=== PATIENT | male | born 1960 | race Caucasian/White ===

== ENCOUNTER 2018-07-06 19:30 | Emergency (ER) | payer BC ==
[~2018-07-06] VITALS: Ht 195.6 cm; Wt 111.1 kg
[2018-07-06 19:35] VITALS: BP 147/96
[2018-07-06] MEDS ORDERED: LIDOcaine 1% 30ml preserv. free vial IJ STA (20:13)
== END 2018-07-06 21:17 | disposition home or self-care (01) ==
LOC: ER 19:32
DX: S60.552A Superficial foreign body of left hand, initial encounter (principal); Z98.890 Other specified postprocedural states; W22.8XXA Striking against or struck by other objects, initial encounter; Y93.89 Activity, other specified; Y92.69 Other specified industrial and construction area as the place of occurrence of the external cause; Y99.9 Unspecified external cause status
CPT/HCPCS: 99284

== ENCOUNTER 2022-10-14 13:47 | Inpatient (IN) | payer BC, MEDICARE ==
[~2022-10-14] VITALS: Ht 195.6 cm; Wt 93.2 kg
[2022-10-14 14:35] LABS: BASOPHILS # (AUTO) 0.1 X10'3 (0-0.2); BASOPHILS % (AUTO) 0.7 % (0-1); EOSINOPHILS # (AUTO) 0.2 X10'3 (0-0.9); EOSINOPHILS % (AUTO) 2.1 % (0-6); HEMATOCRIT 45.5 % (42.0-52.0); HEMOGLOBIN 15.2 g/dl (14.0-17.9); LYMPHOCYTES # (AUTO) 1.5 X10'3 (1.1-4.8); LYMPHOCYTES % (AUTO) 13.5 % (21-51); MEAN CORPUSCULAR HEMOGLOBIN 30.7 PG (27.0-31.0); MEAN CORPUSCULAR HGB CONC 33.5 g/dL (33.0-36.5); MEAN CORPUSCULAR VOLUME 91.8 FL (78-98); MEAN PLATELET VOLUME 8.1 FL (7.4-10.4); MONOCYTES # (AUTO) 0.9 X10'3 (0-0.9); MONOCYTES % (AUTO) 7.8 % (2-12); NEUTROPHILS # (AUTO) 8.5 X10'3 (1.8-7.7); NEUTROPHILS % (AUTO) 75.9 % (42-75); PLATELET COUNT 394 X10'3 (140-440); RED BLOOD COUNT 4.96 X10'6 (4.70-6.10); RED CELL DISTRIBUTION WIDTH 13.9 % (11.5-14.5); WHITE BLOOD COUNT 11.2 X10'3 (4.5-11.0)
[2022-10-14 14:55] LABS: ALANINE AMINOTRANSFERASE 31 U/L (12-78); ALBUMIN 4.2 G/DL (3.4-5.0); ALBUMIN/GLOBULIN RATIO 1.1 (1.1-1.5); ALKALINE PHOSPHATASE 76 IU/L (46-116); ANION GAP 8 (8-16); ASPARTATE AMINO TRANSFERASE 26 U/L (10-37); BILIRUBIN,TOTAL 0.4 MG/DL (0.1-1.0); BLOOD UREA NITROGEN 13 MG/DL (7-18); CALCIUM 9.7 MG/DL (8.5-10.1); CHLORIDE 104 MMOL/L (99-107); CREATININE 0.62 MG/DL (0.60-1.10); ETHANOL < 10 MG/DL (<10); GLUCOSE 104 MG/DL (70-104); POTASSIUM 4.3 MMOL/L (3.5-5.1); SODIUM 141 MMOL/L (135-145); TOTAL CARBON DIOXIDE 28.9 MMOL/L (24-32); TOTAL PROTEIN 7.9 G/DL (6.4-8.2); eCRCL 158 ML/MIN; eGFR > 90 ML/MIN
[2022-10-14 15:31] LABS: URINE AMPHETAMINE SCREEN NEGATIVE (Neg); URINE BARBITUATE SCREEN NEGATIVE (Neg); URINE BENZODIAZEPINES SCREEN NEGATIVE (Neg); URINE CANNABINOID SCREEN NEGATIVE (Neg); URINE COCAINE SCREEN NEGATIVE (Neg); URINE METHADONE SCREEN NEGATIVE (Neg); URINE OPIATE SCREEN NEGATIVE (Neg); URINE PHENCYCLIDINE SCREEN NEGATIVE (Neg)
[2022-10-14 16:04] LABS: BILIRUBIN,URINE NEGATIVE (Neg); CLARITY,URINE CLEAR (Clear); COLOR,URINE YELLOW (Yellow); GLUCOSE, URINE NEGATIVE (Neg); KETONES,URINE TRACE mg/dl (Neg); LEUKOCYTE ESTERASE ,URINE NEGATIVE (Neg); NITRITES, URINE NEGATIVE (Neg); OCCULT BLOOD,URINE NEGATIVE (Neg); PH,URINE 5.5 (4.8-8.0); PROTEIN,URINE NEGATIVE (Neg); UROBILINOGEN,URINE 0.2 E.U/dL (0.2-1.0)
[2022-10-14 16:07] LABS: UA COLLECTION TYPE CLN CATCH MIDSTREAM
--- NOTE | 2022-10-14 16:42 | NUR ---
RN spoke to patient for quite a while. Patient tearful and states he wants to live. Patient states he is able to walk, able to speak, able to use his hands. Patient denies falling and states he is very careful. Patient states when he is close to the end he plans on breathing in nitrogen to kill himself. Patient states he wants some control at the end. But patient does not want to end his life now. RN also spoke to his on the phone and she did not know his plan and was very concerned as to why he would keep the nitrogen in his jeep. "That's a red flag!" RN asked the patient why he kept the nitrogen in his car. Patient stated it was the safest place so nobody would find it. RN again asked the patient if he wanted to end his life soon. Patient denied. RN spoke to patient and advised that in the end he will not be able to administer it to himself. He agreed.
--- NOTE | 2022-10-14 19:10 | NUR ---
PATIENT HAVING CONVERSATION WITH JENNY AT THIS TIME.
[2022-10-14] MEDS ORDERED: LATA2.5D14 EACHEYE (21:23)
[2022-10-14] MEDS ORDERED: SOD1POWD PO (21:23)
[2022-10-14] MEDS ORDERED: TRILOGY INH (21:23)
[2022-10-14] MEDS ORDERED: BUDE10.2 INH (21:23)
[2022-10-14] MEDS ORDERED: EDAR105O PO (21:23)
[2022-10-14] MEDS ORDERED: BRIM5DRO21 EACHEYE (21:23)
--- NOTE | 2022-10-14 21:49 | NUR ---
Gathered patient med list. Communicated with Carol. She is bringing his Trilogy machine for him to use [employer]. Cabrera RT will assist in set-up. Patient was upset about 5150 placement however getting all his medications and Trilogy machine gathered up gave him some peace of mind and allowed him to relax more. Patient changed into green scrubs and gathered his belongings including his cell phone and clothing.
--- NOTE | 2022-10-14 21:56 | NUR ---
Carol () cell phone [phone]
--- NOTE | 2022-10-14 21:57 | NUR ---
Madyson canada in [facility] - 10/14/22 at 2159 by MIGUELITO Carol ([place]) [phone] contact information.
--- NOTE | 2022-10-14 21:59 | NUR ---
Received patient's Trilogy machine and rest of home meds from . Called pharmacy to let them know about special meds coming. RT hooked patient up to his machine and is gathering his tubing to his machine that she forgot to bring. Patient appears to be comfortable and applied SPo2. Oxygen level 97%.
--- NOTE | 2022-10-14 22:37 | NUR ---
Nurse stephen took wallet, phone and keys and gave them to pt's .
--- NOTE | 2022-10-14 22:38 | NUR ---
records sent to [facility]
[2022-10-14 23:54] VITALS: PULSE 74; RESP 18; O2SAT 98
[2022-10-15] VITALS (9 sets, daily range): BP systolic 124–140; BP diastolic 79–95; PULSE 73–89; RESP 16–20; TEMP 97.7–97.8; O2SAT 97–98
[2022-10-15] MEDS ORDERED: [UNRECOGNIZED DRUG - REMARK] PO (00:59)
[2022-10-15] MEDS ORDERED: VIT B12 PO (00:59)
[2022-10-15] MEDS ORDERED: Vit D3 PO (00:59)
[2022-10-15] MEDS ORDERED: [UNRECOGNIZED DRUG - OTHER] PO (00:59)
[2022-10-15] MEDS ORDERED: [UNRECOGNIZED DRUG - OTHER] PO (00:59)
[2022-10-15] MEDS ORDERED: [UNRECOGNIZED DRUG - OTHER] PO (00:59)
[2022-10-15] MEDS ORDERED: [UNRECOGNIZED DRUG - OTHER] PO (00:59)
[2022-10-15] MEDS ORDERED: FISH1CAP15 PO (00:59)
[2022-10-15] MEDS ORDERED: [UNRECOGNIZED DRUG - OTHER] PO (00:59)
[2022-10-15] MEDS ORDERED: UBID50TA3 PO (00:59)
[2022-10-15] MEDS ORDERED: BUDE10.2 INH (00:59)
[2022-10-15] MEDS ORDERED: LION S MANE PO (00:59)
--- NOTE | 2022-10-15 02:02 | NUR ---
Patient sleeping well, appears to be comfortable. Will continue to monitor.
--- NOTE | 2022-10-15 07:05 | NUR ---
Nurse received report from [facility] nurse. Pt is awake at bedside reading a magazine. No acute distress noted.
[2022-10-15] MEDS: brimonidine 0.2% 5 ML ophthalmic drops EACHEYE SCH ×2 (08:00→20:31)
[2022-10-15] MEDS: [UNRECOGNIZED DRUG - OTHER] PO SCH (08:00)
[2022-10-15] MEDS ORDERED: non-formulary drug (Budesonide/Formoterol Fumarate (Symbicort 160-4.5 Mcg Inhaler) 2 PUFFS INH SCH (08:00)
[2022-10-15] MEDS: timolol 0.5% ophthalmic solution 5ml bottle EACHEYE SCH ×2 (08:00→20:00)
[2022-10-15] MEDS ORDERED: EPA PO SCH (08:00)
[2022-10-15] MEDS ORDERED: FISH OIL PO SCH (08:00)
[2022-10-15] MEDS ORDERED: DHA PO SCH (08:00)
[2022-10-15] MEDS ORDERED: albuterol 2.5 MG/3 ML nebule NEB SCH (09:00)
[2022-10-15] MEDS ORDERED: budesonide 0.5mg/2ml UD nebule IH SCH (09:00)
--- NOTE | 2022-10-15 09:00 | NUR ---
Pt is eating breakfast at bedside.
[2022-10-15] MEDS: UBIDECARENONE 100 MG PO SCH (09:21)
[2022-10-15] MEDS: SOD PHENYLBUTYRAT PO SCH (09:23)
[2022-10-15] MEDS: [UNRECOGNIZED DRUG - OTHER] PO SCH (09:23)
[2022-10-15] MEDS ORDERED: mag hydrox/Alum hydrox/simeth 30ml oral suspension PO PRN (09:50)
[2022-10-15] MEDS ORDERED: acetaminophen 325mg tablet PO PRN ×2 (09:50)
[2022-10-15] MEDS ORDERED: loperamide 2mg capsule PO PRN (09:50)
[2022-10-15] MEDS ORDERED: magnesium hydroxide 30ml (MOM) UD suspension PO PRN (09:50)
--- NOTE | 2022-10-15 10:00 | NUR ---
1:1 done at bedside, pt upset regarding his medications and the fact that some of his supplements were not continued. Pt requesting to speak with the MD stating, "this is cruel, they want me to decline." Nurse ensured pt. this was not the MD intentions but often supplements are not continued while in the ED. Pt was acceptable of this. Pt denies SI at this time. Pt has been trying to get ahold of his since 0800 but she is not answering phone calls. This nurse called his per pt request and spoke with his who said she would call her back but she has not. Pt. has now been accepted to [facility].
--- NOTE | 2022-10-15 11:34 | NUR ---
Admit note: Pt admitted to [place] for [facility] today on 5150 for DTS at 1010. Pt reports buying nitrogen , hiding nitrogen and equipment in his vehicle so his family would not find it, as a way to end his life in the future due to ALS dx. Family expressed concerns for his safety and not willing to safety plan. Pt seems to only have history of ALS. Addendum: 10/15/22 at 1820 by Maria Teresa Abreu RN Pt. denies any current S/I and scores as a low risk on the [place] Suicide Risk Assessment. This was endorsed to Robe Javier 15min safety checks were ordered. However, pt. is to be on line of sight when using his Trilogy CPAP in his room r/t safety risk. Pt. exhibits bilateral lower extremity weakness and uses bilateral ankle braces and a walker. A soft chopped diet was ordered r/t delayed and decreased swallowing ability.
[2022-10-15] MEDS: BUDESONIDE IH SCH ×2 (12:33→20:34)
[2022-10-15] MEDS: FORMOTEROL IH SCH ×2 (12:33→20:34)
--- NOTE | 2022-10-15 15:36 | NUR ---
Family friend, Roberto Carlos (ph# [phone]), called to state that she is an advocate for the family and that she will be the customer contact sales associate, not patient's , Sly. Patient did sign ABRAM for both Roberto Carlos and his . Roberto Carlos reported she will try to visit patient tomorrow. LEWIS Acosta
[2022-10-15] MEDS ORDERED: ibuprofen tablet 400 MG TABLET PO ONE (17:15)
[2022-10-15] MEDS: OMEGA-3/DHA/EPA/FISH OIL 1 EACH CAPSULE.DR PO SCH (20:32)
[2022-10-15] MEDS: latanoprost 0.005% 2.5ml ophthalmic drops EACHEYE SCH (20:32)
[2022-10-16] VITALS (8 sets, daily range): BP systolic 101–116; BP diastolic 68–74; PULSE 65–90; RESP 16–18; TEMP 97.4–97.8; O2SAT 95–99
--- NOTE | 2022-10-16 05:10 | NUR ---
NURSING PROGRESS NOTE: John Problem: Pt admitted to [place] for [facility] health today on 5150 for DTS at 1010. Pt reports buying nitrogen , hiding nitrogen and equipment in his vehicle so his family would not find it, as a way to end his life in the future due to ALS dx. Family expressed concerns for his safety and not willing to safety plan. Pt seems to only have history of ALS. Interventions : Maintained a safe and supportive environment, ensured contract for safety, provided clear and simple instructions, provided active listening and positive encouragement, encouraged pt. to perform ADLs, and maintained Q 15min safety checks. Response: Microbiology Professor received pt in dining room completing meal. He needed assistance to put tray away. He ambulates with ankle braces he is able to don/doff. His gait and speech are slow. Pt is alert and oriented x 4. Pt reports his mental health admission today is due to wanting to end his life by nitrogen inhalation. He recently received his ALS diagnosis in the last few years. His ALS diagnosis is not terminal at this time but debilitating. He reports every day is getting worse. He states his current advanced directive does not allow him to pursue physician assisted suicide and will be needing to revise upon his discharge. He has a and son. His family is aware of his diagnosis. He states his and son help him with his daily care such as folding clothes. Pt speech is mumbled and takes considerable effort to participate in conversation. Wet nonproductive cough noted. Pt does not want to be a burden to his family. Pt is upset that his Psychiatrist broke his trust in discovering his plan to kill himself through nitrogen inhalation. 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 He enjoyed rowing and riding dirt bikes. General muscle wasting noted. Pt ambulates in room without braces in a fair manner. Pt aware of room surroundings. Pt has Trilogy ventilator. Pt able to don/doff mask with ease. Pt compliant with all medications but refused Timolol eye drops. Pt is frustrated that he is not able to take his home vitamin/supplements. He stated the pharmacist disclosed to patient, they will not fill for him despite supplements being brought to pharmacy. Pt appearance well groomed. Pt thought content depressed. Pt insight poor. Pt judgement average to poor. Pt mood depressed. Pt reports poor sleep yesterday. Pt declined snack. Plan : Pt. requires interruption of current crisis, medication adjustments, and a safe and supportive environment. Pt currently is a high risk discharge.
[2022-10-16 07:36] LABS: CHOL/HDL RATIO 4.9 (0.00-4.99); CHOLESTEROL 240 MG/DL (0-200); HDL CHOLESTEROL 49 MG/DL (35-60); LDL CHOLESTEROL 152 MG/DL (50-100); TRIGLYCERIDES 107 MG/DL (20-135)
[2022-10-16 07:56] LABS: HEMOGLOBIN A1C 5.4 % (4.5-6.2)
[2022-10-16] MEDS: timolol 0.5% ophthalmic solution 5ml bottle EACHEYE SCH ×2 (08:00→08:58)
[2022-10-16] MEDS: brimonidine 0.2% 5 ML ophthalmic drops EACHEYE SCH ×2 (08:58→20:00)
[2022-10-16] MEDS: OMEGA-3/DHA/EPA/FISH OIL 1 EACH CAPSULE.DR PO SCH ×2 (08:59→21:25)
[2022-10-16] MEDS: [UNRECOGNIZED DRUG - OTHER] PO SCH (08:59)
[2022-10-16] MEDS: SOD PHENYLBUTYRAT PO SCH (08:59)
[2022-10-16] MEDS: UBIDECARENONE 100 MG PO SCH (08:59)
[2022-10-16] MEDS: [UNRECOGNIZED DRUG - OTHER] PO SCH (09:00)
[2022-10-16] MEDS: BUDESONIDE IH SCH ×2 (09:03→20:08)
[2022-10-16] MEDS: FORMOTEROL IH SCH ×2 (09:03→20:08)
[2022-10-16] MEDS ORDERED: [UNRECOGNIZED DRUG - OTHER] PO (10:37)
[2022-10-16] MEDS ORDERED: [UNRECOGNIZED DRUG - REMARK] PO (10:38)
[2022-10-16] MEDS ORDERED: [UNRECOGNIZED DRUG - OTHER] PO (10:38)
[2022-10-16] MEDS ORDERED: LION S MANE PO (10:39)
[2022-10-16] MEDS ORDERED: Vit D3 PO (10:39)
[2022-10-16] MEDS ORDERED: [UNRECOGNIZED DRUG - OTHER] PO (10:39)
[2022-10-16] MEDS ORDERED: VIT B12 PO (10:39)
[2022-10-16] MEDS ORDERED: [UNRECOGNIZED DRUG - OTHER] PO (10:39)
--- NOTE | 2022-10-16 11:24 | NUR ---
Point of Contact for Patient: Blair Marin
--- NOTE | 2022-10-16 14:53 | NUR ---
Psychosocial Assessment John is a 62 y/o male who was placed on 5150 for danger to self. He had [facility] and admitted that he had purchased nitrogen and hid it in his Jeep to have on hand for when he decides it is time to take his life in the future due to ALS complications. John was kept on 5150 and placed at [facility]. John repored he began having issues with his speech May 2020 and was diagnosed with ALS August 2021. 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 He reported his neurologist, Dr Rice, typically places a person with an ALS diagnosis on an antidepressant. John had tried 5 of them without success and [facility]. He has been seeing Sarah Giordano NP, at the [facility]. He reported he felt like she "tricked" him into disclosing his plan of nitrogen asphyxiation. John stated, "I want to live". He denied any current suicidal ideation, inent, or plan. He reported he was just planning ahead because he does not want to be a burden to his family. He denied any history of mental health concerns or psychiatric hospitalizations. He reported this situation has helped him to realize he needs to change his healthcare directive so his is more comfortable with it. John reported he wants to return home.
[2022-10-16 17:07] LABS: THYROID STIMULATING HORMONE 2.31 ulU/ml (0.34-4.50)
--- NOTE | 2022-10-16 17:18 | NUR ---
Nursing Progress Note: Problem : Pt admitted to [place] for [facility] health today on 5150 for DTS at 1010. Pt reports buying nitrogen , hiding nitrogen and equipment in his vehicle so his family would not find it, as a way to end his life in the future due to ALS dx. Family expressed concerns for his safety and not willing to safety plan. Pt seems to only have history of ALS. Interventions : Maintained a safe and supportive environment, ensured contract for safety, provided clear and simple instructions, provided active listening and positive encouragement, completed medication reconciliation, maintained fall precautions, and maintained Q 15min safety checks. Response : Received pt. sleeping in bed at the beginning of the shift wearing his Trilogy breathing machine, he remains on line of sight when this is in use per safety precautions. Sitter is at bedside. Pt. awoke and ambulated with a steady gait to the Group Room with use of his FWW. Afterwards, 1:1 was completed at bedside, pt. presents as cooperative and pleasant with a blunted affect. He denies any current S/I, A/V/MCCONNELL, and no delusional statements were made. Pt. does endorse some anxiety and states, "I just want to go home." He believes he will be able to remain safe at home. Pt. is hopeful that he can discharge tomorrow when his hold is up. Pt. was missing some home supplements on his medication list and this was endorsed to Dr. Lozano and an updated medication reconciliation was sent to pharmacy, pt. reported contentment. Pt. was observed to be interacting appropriately with others during the shift and attended the patio. Plan : Pt. requires interruption of current crisis, medication adjustments, and a safe and supportive environment.
--- NOTE | 2022-10-16 19:33 | NUR ---
Nursing Progress Note: Problem : Pt admitted to [place] for [facility] health today on 5150 for DTS at 1010. Pt reports buying nitrogen , hiding nitrogen and equipment in his vehicle so his family would not find it, as a way to end his life in the future due to ALS dx. Family expressed concerns for his safety and not willing to safety plan. Pt seems to only have history of ALS. Interventions : Maintained a safe and supportive environment, ensured contract for safety, provided clear and simple instructions, provided active listening and positive encouragement, completed medication reconciliation, maintained fall precautions, and maintained Q 15min safety checks. Response : The patient was observed in the hallway following shift change. 1:1 Interview at room side. The patient is alert and oriented X4. He speaks softly and pauses to form some words correctly. He describes frustration because of his ALS and the lack of treatment. He is polite and articulate. He denies H/I or S/I. He looks forward to returning home. He denies S/I or H/I at this time. He prefers to remain in his room. Patient states he feels better mentally. No BM today. Plan : Pt. requires interruption of current crisis, medication adjustments, and a safe and supportive environment.
[2022-10-16] MEDS ORDERED: LION S MANE PO SCH (20:00)
[2022-10-16] MEDS: [UNRECOGNIZED DRUG - REMARK] PO SCH (20:00)
[2022-10-16] MEDS: [UNRECOGNIZED DRUG - OTHER] PO SCH (21:26)
[2022-10-16] MEDS: latanoprost 0.005% 2.5ml ophthalmic drops EACHEYE SCH (21:28)
[2022-10-17 07:00] VITALS: RESP 20; O2SAT 96
[2022-10-17 08:00] VITALS: BP 113/56; PULSE 85; RESP 20; TEMP 97.7; O2SAT 96
[2022-10-17] MEDS ORDERED: TRILOGY IH SCH (08:00)
[2022-10-17] MEDS ORDERED: atorvastatin 20mg tablet PO SCH (08:00)
[2022-10-17] MEDS ORDERED: [UNRECOGNIZED DRUG - OTHER] PO SCH (08:00)
[2022-10-17] MEDS ORDERED: cholecalciferol (vitamin D3) 1,000 unit (25mcg) tablet PO SCH (08:00)
[2022-10-17] MEDS: [UNRECOGNIZED DRUG - OTHER] PO SCH (08:00)
[2022-10-17] MEDS ORDERED: LION S MANE PO SCH (08:00)
[2022-10-17] MEDS ORDERED: cyanocobalamin 500mcg tablet PO SCH (08:00)
[2022-10-17] MEDS ORDERED: [UNRECOGNIZED DRUG - OTHER] PO SCH (08:00)
[2022-10-17] MEDS: [UNRECOGNIZED DRUG - OTHER] PO SCH (08:00)
[2022-10-17] MEDS: brimonidine 0.2% 5 ML ophthalmic drops EACHEYE SCH (08:50)
[2022-10-17 08:54] VITALS: PULSE 81; RESP 16; O2SAT 98
[2022-10-17 08:58] VITALS: PULSE 81; RESP 16
[2022-10-17] MEDS: FORMOTEROL IH SCH (09:00)
[2022-10-17] MEDS: BUDESONIDE IH SCH (09:00)
[2022-10-17] MEDS: OMEGA-3/DHA/EPA/FISH OIL 1 EACH CAPSULE.DR PO SCH (10:42)
[2022-10-17] MEDS: UBIDECARENONE 100 MG PO SCH (10:44)
[2022-10-17] MEDS: [UNRECOGNIZED DRUG - REMARK] PO SCH (10:47)
[2022-10-17] MEDS: SOD PHENYLBUTYRAT PO SCH (10:49)
[2022-10-17] MEDS: [UNRECOGNIZED DRUG - OTHER] PO SCH (10:49)
--- NOTE | 2022-10-17 13:50 | NUR ---
DISCHARGE PLAN Roberto Carlos (ph# [phone]), family friend is going to merchandise pickup/receiving associate John to take him home. Informed her that follow up appointments have been made. She reported there are not any weapons in the home. LEWIS Acosta
--- NOTE | 2022-10-17 16:13 | NUR ---
Nursing Discharge Note Pt was discharged from [facility] at 1605 to return home. He was picked up by his . Pt was in no physical or emotional distress and has been improving since admission. Pt in pleasant mood and smiling. His belongings and medications were inventoried and returned to him. He understands his f/u care and does not need nicotine replacement.
[2022-10-17 17:02] LABS: HBSAG SCREEN Negative (Negative); HEP B CORE AB, IGM Negative (Negative); HEP B CORE AB, TOT Negative (Negative)
[2022-10-20] MEDS ORDERED: EDARAVONE PO SCH (08:00)
== END 2022-10-17 16:02 | disposition home or self-care (01) | DRG 881 ==
LOC: ER 13:48 → ED HOLD 10-15 08:45 → ADULT MH 10-15 10:10
PROVIDERS: ADMIT Psychiatry & Neurology Psychiatry; ATTEND Psychiatry & Neurology Psychiatry
PROC: 5A09357 Assistance with Respiratory Ventilation, Less than 24 Consecutive Hours, Continuous Positive Airway Pressure (ICD-10-PCS; principal; 2022-10-16)
DX: F43.21 Adjustment disorder with depressed mood (principal); G12.21 Amyotrophic lateral sclerosis; R45.851 Suicidal ideations; Z20.822 Contact with and (suspected) exposure to COVID-19; Z60.2 Problems related to living alone; E78.5 Hyperlipidemia, unspecified; Z96.641 Presence of right artificial hip joint; G47.30 Sleep apnea, unspecified; Z79.51 Long term (current) use of inhaled steroids; Z80.8 Family history of malignant neoplasm of other organs or systems; Z79.899 Other long term (current) drug therapy
CPT/HCPCS: 36415; 80053; 80061; 80305; 80320; 81003; 83036; 84443; 85025; 86704; 86705; 87081; 87340; 87811; 94640; 94760; 99285